=== PATIENT | female | born 1945 | race Caucasian/White ===

== ENCOUNTER → 2017-04-09 | Outpatient (CLI) | payer OTHER | END | disposition home or self-care (01) | DX: M16.11 Unilateral primary osteoarthritis, right hip (principal); R26.2 Difficulty in walking, not elsewhere classified; M25.551 Pain in right hip; M25.651 Stiffness of right hip, not elsewhere classified; M62.81 Muscle weakness (generalized) | CPT/HCPCS: 97110 GP; 97150 GO; 97161 GP; 97165 GO; G8981 GP; G8982 GP; G8983 GP; G8987 GO; G8988 GO; G8989 GO ==

== ENCOUNTER 2017-05-12 21:51 | Inpatient (IN) | payer OTHER ==
[~2017-05-12] VITALS: Ht 165.1 cm; Wt 75.0 kg
[~2017-05-12 21:51] MED LIST: COQ-10100 MG PO; DULERA 100 MCG/13 GM IH; FISH OIL 500 M1 EAC3 PO; MULTIPLE VITAM1 EAC1 PO; PRAVACHOL40 MG PO; PROTONIX40 MG PO; TOPROL XL25 MG PO
[2017-05-13] VITALS (7 sets, daily range): BP systolic 98–138; BP diastolic 55–66
[2017-05-13 11:33] LABS: HEMATOCRIT 41.3 % (36.0-46.0); MCH 30.1 PG (29.0-34.0); MCHC 33.4 G/DL (30.0-36.0); MCV 90.2 FL (83-99); MEAN PLAT.VOLUME 11.3 uM^3 (9.5-12.4); PLATELET COUNT 311 K/uL (156-360); RBC DIS.WIDTH-CV 13.7 % (11.8-14.6); RED BLOOD COUNT 4.58 M/uL (3.80-5.20); WHITE BLOOD COUNT 19.4 K/uL (4.1-10.2)
[2017-05-14 03:30] VITALS: BP 109/55
[2017-05-14 06:48] LABS: HEMATOCRIT 38.3 % (36.0-46.0); MCV 90.5 FL (83-99)
[2017-05-14 07:16] LABS: ANION GAP 12 MEQ/L (2-14); CHLORIDE 105 MEQ/L (99-109); GFR ESTIMATE (CALCULATED) > 59 mL/min/; GLUCOSE 111 mg/dL (70-99); POTASSIUM 4.3 MEQ/L (3.7-5.4); SAMPLE HEMOLYSIS CHECK 0; SAMPLE ICTERIC CHECK 0; SAMPLE LIPEMIA CHECK 0; SODIUM 141 MEQ/L (136-147); UREA NITROGEN (BUN) 12 mg/dL (9-23)
[2017-05-14 07:40] VITALS: BP 121/58
[2017-05-14 11:37] VITALS: BP 105/52
[2017-05-14 15:48] VITALS: BP 104/56
[2017-05-14 20:01] VITALS: BP 96/53
[2017-05-15 00:11] VITALS: BP 116/58
[2017-05-15 04:00] VITALS: BP 121/60
[2017-05-15 07:38] VITALS: BP 119/58
[2017-05-15] MEDS ORDERED: LOVENOX40 MG/0.4 SC (07:58)
[2017-05-15] MEDS ORDERED: HYDROCODON-ACE1 EAC7 PO (07:58)
[2017-05-15 11:30] VITALS: BP 100/69
== END 2017-05-15 14:00 | disposition home health service (06) | DRG 470 ==
LOC: ENRESERV 21:51 → 2SOUTH 05-13 05:18 → SDC 05-13 09:30 → EDSTATUS 05-13 09:30 → 2SOUTH 05-13 09:32 → 3WEST 05-13 11:05 → 2SOUTH 05-13 11:36 → 3WEST 05-15 14:00
PROVIDERS: Orthopaedic Surgery
PROC: 0SR90JZ Replacement of Right Hip Joint with Synthetic Substitute, Open Approach (ICD-10-PCS; principal; 2017-05-13)
DX: M16.11 Unilateral primary osteoarthritis, right hip (principal); I10 Essential (primary) hypertension; K21.9 Gastro-esophageal reflux disease without esophagitis; K44.9 Diaphragmatic hernia without obstruction or gangrene; I48.0 Paroxysmal atrial fibrillation; E78.5 Hyperlipidemia, unspecified
CPT/HCPCS: 73501; 73502; 76000; 80048; 85014; 85018; 85027; 94640; 94640 76; 97530 GO; J0131; J0330; J0690; J1100; J1170; J1650; J2250; J2405; J3010; J7050